=== PATIENT | male | born 1960 | race Caucasian/White ===

== ENCOUNTER → 2021-11-27 | Outpatient (CLI) | payer SELFPAY ==
[2021-11-27 11:43] LABS: African American GFR (CKD) >90 (>60 ml/min/1.73 sqM); Blood Urea Nitrogen 12 mg/dL (9-20); Non-African American GFR(CKD) >90 (>60 ml/min/1.73 sqM)
--- NOTE | 2021-11-27 13:17 | CT ---
EXAMINATION TYPE: CT angio chest DATE OF EXAM: 11/27/2021 COMPARISON: None HISTORY: 61-year-old male Q25.1, Coarctation of Aorta TECHNIQUE: Contiguous axial scanning of the chest performed without and with IV Contrast, patient inj ected with 100 ml mL of Isovue 370. Coronal/sagittal MIP reconstructions performed. 3-D reconstructio ns generated on a dedicated independent workstation. CT DLP: 1051.9 mGycm Automated exposure control for dose reduction was used. FINDINGS: Median sternotomy wires are present. Heart normal size without pericardial effusion. Prosthetic aortic valve. Mild aneurysm ascending aorta 4.3 cm. Conventional arch vessel branching anatomy. No thoracic lymph adenopathy by CT size criteria. Mild to moderate diffuse bronchial wall thickening. Tiny calcified granuloma left lower lobe. No cons olidation or pleural effusion. Minimal posterior right apical pleural parenchymal scarring. Tiny hiatal hernia. Visualized upper abdomen otherwise shows no gross abnormality. Bones: Anterior endplate spondylosis throughout the thoracic spine. Scattered mild to moderate degene rative disc disease throughout. IMPRESSION: 1. ANEURYSMAL ASCENDING AORTA 4.3 CM. 2. MILD TO MODERATE DIFFUSE BRONCHIAL WALL THICKENING COULD REFLECT BRONCHITIS OR CHRONIC ASTHMA. 3. PREVIOUS MEDIAN STERNOTOMY WITH PROSTHETIC AORTIC VALVE.
== END | disposition home or self-care (01) ==
LOC: RADCTMAIN 10:36
DX: I71.4 Abdominal aortic aneurysm, without rupture (principal); Q25.1 Coarctation of aorta
CPT/HCPCS: 82565; 84520; 71275; 36415; Q9967